=== PATIENT | male | born 1970 | race Hispanic/Latino ===

== ENCOUNTER 2020-09-23 11:19 | Emergency (ER) | payer OTHER ==
[~2020-09-23] VITALS: Ht 172.7 cm; Wt 90.7 kg
[2020-09-23] MEDS ORDERED: DOXYCYCLINE HY100 MG PO (11:38)
== END 2020-09-23 12:00 | disposition home or self-care (01) ==
LOC: ER 11:34
DX: L02.415 Cutaneous abscess of right lower limb (principal); I10 Essential (primary) hypertension; E11.9 Type 2 diabetes mellitus without complications; E78.5 Hyperlipidemia, unspecified
CPT/HCPCS: 99283